=== PATIENT | male | born 1935 | race Caucasian/White ===

== ENCOUNTER 2020-09-21 20:43 | Inpatient (IN) ==
[2020-09-21] MEDS ORDERED: Haloperidol 5 mg/ml SDV IV/IM 5 MG/ML AMP IV SLOW PU ONE (20:51)
[2020-09-21 21:17] LABS: ABS Lymphocytes 1.3 10^3/ul (1.0-4.8); ABS Monocytes 0.6 10^3/ul (0-0.8); ABS Neutrophils 5.4 10^3/ul (1.5-7.7); Eosinophil % 0.7 %; Hematocrit 43 % (42-52); Lymphocyte % 17.5 %; Mean Corpuscular HGB Conc 35 g/dL (31-36); Mean Corpuscular Hemoglobin 34 pg (27-31); Mean Corpuscular Volume 96 fL (80-94); Mean Platelet Volume 6.9 fL (7.4-10.4); Platelet Count 246 10^3/uL (150-450); Red Blood Count 4.47 10^6 /uL (4.18-5.48); Red Cell Distribution Width 13 % (10-15); White Blood Count 7.3 10^3/uL (3.5-10.8)
[2020-09-21 21:35] LABS: ALT 24 U/L (7-52); AST 31 U/L (13-39); Albumin 4.3 g/dL (3.2-5.2); Albumin/Globulin Ratio 1.3 (1-3); Alkaline Phosphatase 80 U/L (34-104); Anion Gap 9 mmol/L (2-11); BUN/Creatinine Ratio 41.5 (8-20); Blood Urea Nitrogen 34 mg/dL (6-24); CO2 Carbon Dioxide 28 mmol/L (22-32); Calcium 9.6 mg/dL (8.6-10.3); Chloride 104 mmol/L (101-111); EGFR African American 107.8 (>60); EGFR Non-African American 89.1 (>60); Globulin 3.2 g/dL (2-4); Glucose 90 mg/dL (70-100); Potassium 3.8 mmol/L (3.5-5.0); Sodium 141 mmol/L (135-145); Total Protein 7.5 g/dL (6.4-8.9)
[2020-09-21 21:37] LABS: Troponin I 0.01 ng/mL (<0.03)
[2020-09-21 21:39] LABS: Alcohol, S < 10 mg/dL (<10)
[2020-09-22] MEDS ORDERED: NS 0.9% 1000 ml BAG 1,000 ML IV ONE (01:36)
[2020-09-22 01:40] LABS: Urine Appearance Clear; Urine Bilirubin Negative (Negative); Urine Blood Negative (Negative); Urine Color Amber; Urine Glucose Negative (Negative); Urine Ketones 1+ (Negative); Urine Nitrite Negative (Negative); Urine Protein Negative (Negative); Urine Specific Gravity 1.023 (1.010-1.030); Urine Urobilinogen Negative (Negative)
[2020-09-22] MEDS ORDERED: NS 0.9% 1000 ml BAG 1,000 ML IV SCH (03:15)
[2020-09-22] MEDS ORDERED: Lorazepam PYXIS KEY PRN (11:35)
[2020-09-22] MEDS: Morphine ORAL CONCENTRATE 5 MG/0.25 ML ORAL.SYRIN SL PRN ×2 (12:03→18:42)
[2020-09-22 18:56] LABS: TSH Ultra Thyroid Stim Horm 3.44 mcIU/mL (0.34-5.60)
[2020-09-22] MEDS: LORazepam 2 mg VIAL 1 ml IV PUSH PRN (21:01)
[2020-09-23] MEDS: Morphine ORAL CONCENTRATE 5 MG/0.25 ML ORAL.SYRIN SL PRN ×6 (01:02→22:25)
[2020-09-23] MEDS: Phenol 1.4% Throat Spray 177 ml BTL MT PRN ×2 (01:29→17:15)
[2020-09-23] MEDS: LORazepam 2 mg VIAL 1 ml IV PUSH PRN ×2 (03:33→10:55)
[2020-09-24] MEDS: Morphine ORAL CONCENTRATE 5 MG/0.25 ML ORAL.SYRIN SL PRN ×6 (00:38→21:30)
[2020-09-24] MEDS: Phenol 1.4% Throat Spray 177 ml BTL MT PRN ×2 (08:37→21:30)
[2020-09-24] MEDS: Atropine 1% (ORAL/SL) 15 ML BTL SL PRN ×2 (13:59→21:31)
[2020-09-24] MEDS: LORazepam 2 mg VIAL 1 ml IV PUSH PRN (14:05)
[2020-09-24 14:38] VITALS: BP 123/96
[2020-09-25] MEDS: Morphine ORAL CONCENTRATE 5 MG/0.25 ML ORAL.SYRIN SL PRN ×3 (01:13→09:44)
[2020-09-25] MEDS: Atropine 1% (ORAL/SL) 15 ML BTL SL PRN (09:44)
[2020-09-26] MEDS: Morphine ORAL CONCENTRATE 5 MG/0.25 ML ORAL.SYRIN SL PRN ×2 (01:52→11:06)
[2020-09-26] MEDS: Atropine 1% (ORAL/SL) 15 ML BTL SL PRN (11:07)
== END 2020-09-26 11:20 | disposition home or self-care (01) | DRG 948 ==
LOC: ED 20:43 → MEDTELE 09-22 03:01 → MED 09-22 11:00 → MEDTELE 09-23 22:21
PROVIDERS: ADMIT Student in an Organized Health Care Education/Training Program; ATTEND Internal Medicine